=== PATIENT | male | born 1980 | race African-American/Black ===

== ENCOUNTER 2017-01-27 08:48 | Day surgery (SDC) | payer OTHER ==
[~2017-01-27 08:48] MED LIST: Buffered Lidocaine 0.9% SYRIN* 5 ML/SYR SYRINGE INTRADERM ONE; Famotidine IV* 10 MG/ML 2 ML (20 mg) IV ONE
[2017-01-27] MEDS ORDERED: ceFOXitin 2 GM IVPREMIX* 2 GM/50 ML BAG ONE (08:55)
[2017-01-27] MEDS ORDERED: Buffered Lidocaine 0.9% SYRIN* 5 ML/SYR SYRINGE ONE (08:55)
[2017-01-27] MEDS ORDERED: Famotidine IV* 10 MG/ML 2 ML (20 mg) ONE (08:55)
[2017-01-27] MEDS ORDERED: Chloroprocaine 2%* 20 ML VIAL ONE (09:50)
[2017-01-27] MEDS ORDERED: Ondansetron INJ* 2 MG/ML VIAL ONE (09:50)
[2017-01-27] MEDS ORDERED: Ketorolac INJ* 30 MG/ML 1 ML VIAL ONE (09:50)
[2017-01-27] MEDS ORDERED: fentaNYL* 50 MCG/ML 2 ML VIAL (100 MCG VIAL) ONE (09:50)
[2017-01-27] MEDS ORDERED: Lidocaine 2% PF * 5 ML VIAL ONE (09:50)
[2017-01-27] MEDS ORDERED: Propofol* 10 MG/ML 20 ML BTL IV PUSH ONE (09:50)
[2017-01-27] MEDS ORDERED: Midazolam* 1 MG/ML 5 ML VIAL (5 MG) ONE (09:50)
[2017-01-27] MEDS ORDERED: Lidocaine 2% JELLY* 6 ML JELLY TOPICAL ONE (10:42)
[2017-01-27] MEDS ORDERED: Bupivacaine 0.25% SDV* 30 ML ONE (10:42)
[2017-01-27] MEDS ORDERED: Glycopyrrolate IV* 0.2 MG/ML 1 ML VIAL ONE (11:21)
[2017-01-27] MEDS ORDERED: Acetaminophen TAB* 325 MG PO PRN (11:56)
[2017-01-27 12:25] VITALS: BP 115/87
--- NOTE | 2017-01-28 05:14 | OP ---
CC: Dr. Diogenes Pal; Dr. Gab Tamayo OPERATIVE REPORT: DATE OF OPERATION: 01/27/17 DATE OF : 78 SURGEON: Dr. Pal. SUPERVISOR ASSEMBLY ROOM: None. ANESTHESIOLOGIST: Dr. Rubi. ANESTHESIA: Spinal anesthetic, local infiltration. PRE-OP DIAGNOSIS: Rectal bleeding and hemorrhoids. POST-OP DIAGNOSIS: Rectal bleeding and hemorrhoids. OPERATIVE PROCEDURE: Anoscopy with banding of hemorrhoids. DESCRIPTION OF PROCEDURE: The patient was supine on the operative table. After adequate anesthetic , he was placed in the prone jim knife position with the buttocks taped apart. Local anesthetic wa s available. He has stockings and a warmer in place as well. He has anoscopy carried out and there seemed to be a moderate sized internal hemorrhoid posteriorly, which seems to be little friable. Th is area was double banded without difficulty. There are no other areas noted that were at all suspi cious. This area was anesthetized with 0.25% Marcaine. He tolerated this well and was brought to [facility] in good condition. There were no complications, no drains, no pathologic specimens. Sponge and instrument counts were correct. Estimated blood loss was less than 5 mL. [id number]/[facility] #: [id number]
== END 2017-01-27 12:49 | disposition home or self-care (01) ==
LOC: OR 08:48
PROVIDERS: ATTEND Surgery
DX: K64.0 First degree hemorrhoids (principal); F17.210 Nicotine dependence, cigarettes, uncomplicated; Z88.6 Allergy status to analgesic agent; F41.9 Anxiety disorder, unspecified
CPT/HCPCS: J0694; J1885; J2250; J2400; J2405; J2704; J3010